=== PATIENT | female | born 1945 | race Caucasian/White ===

== ENCOUNTER → 2018-03-21 12:48 | Outpatient (CLI) | payer OTHER, SELFPAY ==
--- NOTE | 2018-03-21 | DI.MG.S_ITS ---
BILATERAL DIGITAL SCREENING MAMMOGRAM 3D/2D WITH CAD: 03/21/2018 CLINICAL: Routine screening. Family history of breast cancer. Comparison is made to exams dated: 03/15/2017 mammogram, 03/13/2016 mammogram, 03/12/2015 mammogram - [facility], 02/20/2014 mammogram, 02/20/2013 mammogram, and 08/05/2012 mammogram - [facility]. There are scattered fibroglandular elements in both breasts. Current study was also evaluated with a Computer Aided Detection (CAD) system. No significant masses, calcifications, or other findings are seen in either breast. There has been no significant interval change. IMPRESSION: NEGATIVE There is no mammographic evidence of malignancy. A 1 year screening mammogram is recommended. This exam was interpreted at Station ID: [id number]. NOTE: For mammograms, a report in lay terms will be sent to the patient. Approximately 15% of breast malignancies will not be visualized mammographically. In the management of a palpable breast mass, a negative mammogram must not discourage biopsy of a clinically suspicious lesion. Electronically Signed By: Chaparro chapman/charisma:03/21/2018 20:15:20 copy to: CT [facility]ERR[facility] letter sent: Normal Exam ACR BI-RADS Category 1: Negative 3341F
== END ==
PROVIDERS: Family Provider Specialist; PCP Nurse Practitioner Family; Visit Provider Specialist
DX: Z12.31 Encounter for screening mammogram for malignant neoplasm of breast (principal); Z80.3 Family history of malignant neoplasm of breast; M81.0 Age-related osteoporosis without current pathological fracture; Z78.0 Asymptomatic menopausal state
CPT/HCPCS: 77063; 77067; 77080

== ENCOUNTER → 2019-03-29 09:05 | Outpatient (CLI) | payer OTHER, SELFPAY ==
--- NOTE | 2019-03-29 | DI.MG.S_ITS ---
BILATERAL DIGITAL SCREENING MAMMOGRAM 3D/2D WITH CAD: 03/29/2019 CLINICAL: Routine screening. Family history of breast cancer. Comparison is made to exams dated: 03/21/2018 mammogram, 03/15/2017 mammogram, and 03/13/2016 mammogram - [facility]. There are scattered fibroglandular elements in both breasts. Current study was also evaluated with a Computer Aided Detection (CAD) system. No significant masses, calcifications, or other findings are seen in either breast. There has been no significant interval change. IMPRESSION: NEGATIVE There is no mammographic evidence of malignancy. A 1 year screening mammogram is recommended. This exam was interpreted at Station ID: [id number]. NOTE: For mammograms, a report in lay terms will be sent to the patient. Approximately 15% of breast malignancies will not be visualized mammographically. In the management of a palpable breast mass, a negative mammogram must not discourage biopsy of a clinically suspicious lesion. Electronically Signed By: Denzel moreland/charisma:03/29/2019 11:29:11 copy to: CT HERRERA letter sent: Normal Exam ACR BI-RADS Category 1: Negative 3341F
== END ==
PROVIDERS: Family Provider Specialist; PCP Nurse Practitioner Family; Visit Provider Nurse Practitioner Family
DX: Z12.31 Encounter for screening mammogram for malignant neoplasm of breast (principal); Z80.3 Family history of malignant neoplasm of breast
CPT/HCPCS: 77063; 77067

== ENCOUNTER → 2020-04-25 13:37 | Outpatient (CLI) | payer OTHER, SELFPAY ==
--- NOTE | 2020-04-25 | DI.MG.S_ITS ---
BILATERAL DIGITAL SCREENING MAMMOGRAM 3D/2D WITH CAD: 04/25/2020 CLINICAL: Routine screening. Family history of breast cancer. Comparison is made to exams dated: 03/29/2019 mammogram, 03/21/2018 mammogram, and 03/15/2017 mammogram - [facility]. There are scattered fibroglandular elements in both breasts. Current study was also evaluated with a Computer Aided Detection (CAD) system. No significant masses, calcifications, or other findings are seen in either breast. There has been no significant interval change. IMPRESSION: NEGATIVE There is no mammographic evidence of malignancy. A 1 year screening mammogram is recommended. This exam was interpreted at Station ID: [id number]. NOTE: For mammograms, a report in lay terms will be sent to the patient. Approximately 15% of breast malignancies will not be visualized mammographically. In the management of a palpable breast mass, a negative mammogram must not discourage biopsy of a clinically suspicious lesion. Electronically Signed By: Chava martinez/charisma:04/25/2020 14:53:20 copy to: CT HERRERA letter sent: Normal Exam ACR BI-RADS Category 1: Negative 3341F
== END ==
PROVIDERS: Family Provider Specialist; PCP Student in an Organized Health Care Education/Training Program; Referring Provider Student in an Organized Health Care Education/Training Program; Visit Provider Student in an Organized Health Care Education/Training Program
DX: Z12.31 Encounter for screening mammogram for malignant neoplasm of breast (principal); Z80.3 Family history of malignant neoplasm of breast; M81.0 Age-related osteoporosis without current pathological fracture; Z78.0 Asymptomatic menopausal state
CPT/HCPCS: 77063; 77067; 77080

== ENCOUNTER → 2020-05-31 15:13 | Outpatient (CLI) | payer MEDICARE, SELFPAY ==
[2020-05-31] MEDS: COVID-19 VACC #1, MRNA(MOD) 100 MCG/0.5 ML VIAL IM (15:22)
== END ==
PROVIDERS: Family Provider Specialist; PCP Student in an Organized Health Care Education/Training Program; Visit Provider Internal Medicine
DX: Z23 Encounter for immunization (principal)
CPT/HCPCS: 0011A; 91301

== ENCOUNTER → 2020-06-27 13:29 | Outpatient (CLI) | payer MEDICARE, SELFPAY ==
[2020-06-27] MEDS: COVID-19 VACC #2, MRNA(MOD) 100 MCG/0.5 ML VIAL IM (13:33)
== END ==
PROVIDERS: Family Provider Specialist; PCP Student in an Organized Health Care Education/Training Program; Visit Provider Internal Medicine
DX: Z23 Encounter for immunization (principal)
CPT/HCPCS: 0012A; 91301

== ENCOUNTER → 2021-04-29 15:29 | Outpatient (CLI) | payer OTHER, SELFPAY ==
--- NOTE | 2021-04-29 15:32 | DI.MG.S_ITS ---
BILATERAL DIGITAL SCREENING MAMMOGRAM 3D/2D WITH CAD: 04/29/2021 CLINICAL: Routine screening. Family history of breast cancer. Comparison is made to exams dated: 04/25/2020 mammogram, 03/29/2019 mammogram, and 03/21/2018 mammogram - [facility]. There are scattered fibroglandular elements in both breasts. Current study was also evaluated with a Computer Aided Detection (CAD) system. There is a stable benign focal asymmetry in the left breast. No significant masses, calcifications, or other findings are seen in either breast. There has been no significant interval change. IMPRESSION: BENIGN There is no mammographic evidence of malignancy. A 1 year screening mammogram is recommended. This exam was interpreted at Station ID: [id number]. NOTE: For mammograms, a report in lay terms will be sent to the patient. Approximately 15% of breast malignancies will not be visualized mammographically. In the management of a palpable breast mass, a negative mammogram must not discourage biopsy of a clinically suspicious lesion. Electronically Signed By: Gurpreet Banks acr/charisma:04/29/2021 17:15:05 copy to: CT HERRERA letter sent: Normal Exam ACR BI-RADS Category 2: Benign Finding(s) 3342F
== END ==
PROVIDERS: Family Provider Specialist; PCP Student in an Organized Health Care Education/Training Program; Referring Provider Student in an Organized Health Care Education/Training Program; Visit Provider Student in an Organized Health Care Education/Training Program
DX: Z12.31 Encounter for screening mammogram for malignant neoplasm of breast (principal); Z80.3 Family history of malignant neoplasm of breast
CPT/HCPCS: 77063; 77067

== ENCOUNTER → 2022-03-17 09:46 | Outpatient (CLI) | payer OTHER, SELFPAY ==
[2022-03-17 10:41] LABS: COVID19 -Nasal RAPID Negative (Negative)
== END ==
PROVIDERS: Radiology Diagnostic Radiology; Family Provider Specialist; PCP Student in an Organized Health Care Education/Training Program; Referring Provider Internal Medicine; Visit Provider Internal Medicine
DX: Z20.822 Contact with and (suspected) exposure to COVID-19 (principal)
CPT/HCPCS: 87635; C9803

== ENCOUNTER → 2022-03-18 07:56 | Outpatient (CLI) | payer OTHER, SELFPAY ==
--- NOTE | 2022-03-18 | DI.ECHO.S_ITS ---
[facility] +---------+ : : [address] : [place] : : : : [id number] : : : : Phone: [phone]+ Echocardiogram Report + + :Name: MICHELE LARKIN Study Date: 03/18/2022 Height: 61 in : :[facility] ReadingLocation: Weight: 134 lb : : Gender: Female BSA: 1.6 m2 : :: 1945 Age: 76 yrs BP: 142/81 mmHg: :Reason For Study: VENTRICULAR PREMATURE DEPLOARIZATION : :Ordering Physician: SABRA, : :ANUPAMA Performed By: Kandi Lopes : :Referring: ANUPAMA MONTAÑO : + + Interpretation Summary The ejection fraction is estimated to be 60-65%. Diastolic parameters suggest probable normal left ventricular diastolic function and normal filling pressures. The right ventricle is normal in size and function. The right ventricular systolic pressure is estimated to be at least 30 mmHg based on an estimated right atrial pressure of 3 mm Hg. No significant valvular disease. Procedure: A two-dimensional transthoracic echocardiogram with color flow and Doppler was performed. The study quality was technically adequate. There is no prior echocardiogram noted for this patient. The patient was in sinus rhythm with heart rates between 69-85 bpm during the exam. Left Ventricle: The left ventricle is normal in size and wall thickness. The ejection fraction is estimated to be 60-65%. There are no obvious focal wall motion abnormalities noted but poor endocardial definition reduces the sensitivity for the detection of such. Diastolic parameters suggest probable normal left ventricular diastolic function and normal filling pressures. Right Ventricle: The right ventricle is normal in size and function. Atria: The left atrial size is normal. Right atrial size is normal. There is no Doppler evidence for an interatrial shunt. Mitral Valve: The mitral valve is normal in structure and function. There is trace mitral regurgitation. Aortic Valve: The aortic valve is trileaflet. The aortic valve opens well. There is no aortic valve stenosis. There is trace aortic regurgitation. Tricuspid Valve: The tricuspid valve leaflets are thin and pliable. There is mild tricuspid regurgitation. The right ventricular systolic pressure is estimated to be at least 30 mmHg based on an estimated right atrial pressure of 3 mm Hg. Pulmonic Valve: The pulmonic valve leaflets are thin and pliable; valve motion is normal. There is mild pulmonic regurgitation. Great Vessels: The aortic root is normal size. The dimensions of the ascending aorta are normal. The IVC is of normal diameter and collapses greater than 50% with a sniff. This suggests a low right atrial pressure of 3 mm Hg. Pericardium/ Pleura There is no pericardial effusion. There is no pleural effusion. MMode/2D Measurements & Calculations LVIDd: 4.1 cm LVOT diam: 2.2 cm LVIDs: 2.6 cm Ao root diam: 3.2 cm FS: 37.5 % asc Aorta Diam: 3.0 cm IVSd: 0.83 cm Ao Arch Diam (Prox Trans): 2.5 cm LVPWd: 0.70 cm LV lambert. diameter/BSA (cm/m^2): 2.6 LV sys. diameter/BSA (cm/m^2): 1.6 LA A2 area: 15.9 cm2 RA long axis: 4.1 cm LA A4 area: 11.3 cm2 RA area: 11.4 cm2 LA length (vol): 3.7 cm RA vol: 26.8 ml LA vol: 41.0 ml RA : 16.8 ml/m2 LA vol index: 25.7 ml/m2 IVC diam: 1.0 cm RVD1 (basal): 3.2 cm TAPSE: 2.0 cm Doppler Measurements & Calculations Ao V2 max: 122.5 cm/sec LVOT Max Ulysses: 96.7 cm/sec Ao V2 mean: 88.7 cm/sec LV V1 max P.7 mmHg Ao max P.0 mmHg LV V1 VTI: 19.7 cm Ao mean P.5 mmHg TYSON(I,D): 2.6 cm2 Ao V2 VTI: 28.4 cm TYSON(V,D): 3.0 cm2 sev ratio: 0.69 TYSON indexed to BSA (cm^2/m^2): 1.6 MV E max ulysses: 82.9 cm/sec TR max ulysses: 259.2 cm/sec MV A max ulysses: 94.6 cm/sec TR max P.9 mmHg MV E/A: 0.88 PA V2 max: 79.5 cm/sec Med Peak E' Ulysses: 7.6 cm/sec PA V2 mean: 53.7 cm/sec E/E' med: 10.9 PA mean P.3 mmHg Lat Peak E' Ulysses: 6.2 cm/sec PA pr(Accel): 31.0 mmHg E/E' lat: 13.4 E/e' average: 12.1 MV dec time: 0.19 sec SV(LVOT): 74.4 ml Reading Physician:JAMES
--- NOTE | 2022-03-18 20:41 | DI.NM.S_ITS ---
DATE OF SERVICE: PROCEDURE: Exercise stress test. INDICATION: PVCs. CARDIAC STRESS: The patient underwent exercise stress test under the supervision of an attending staff. She walked on Christiano protocol for 5 minutes and 48 seconds, achieved maximum heart rate 152, which was 105 percent of target heart rate. Resting blood pressure 132/66 and peak blood pressure 158/80 mmHg. LOCO -10 percent. She achieved 7 METs of workload. No chest discomfort. Had some shortness of breath. Baseline rhythm was sinus with PVCs. During early part of exercise, there were more frequent isolated PVCs without any ventricular tachycardia. However, at peak exercise and early recovery, when maximum heart rate was 152, PVCs got suppressed. No significant recurrence in recovery. No complex ventricular arrhythmias, like ventricular tachycardia seen. CONCLUSION: Exercise stress test is negative for inducible ischemia. Normal hemodynamic response. Fair exercise tolerance. Functional aerobic impairment - 10 percent. Baseline rhythm sinus with isolated premature ventricular contractions, which got more frequent during early part of exercise, but got suppressed during peak exercise and early recovery. No complex ventricular arrhythmias, like ventricular tachycardia seen. No chest discomfort. Overall, low-risk exercise stress test. Niki Glaser - PATRICIA/porsche/lc doc#: [id number]/job#: [id number] dd: 03/18/2022 17:15:00 dt: 03/18/2022 20:26:00 DICTATING /COPIES TO: Nabil Castillo MD COPIES MNE: STAR;
== END ==
PROVIDERS: Family Provider Specialist; PCP Internal Medicine; Referring Provider Internal Medicine; Visit Provider Internal Medicine
DX: I07.1 Rheumatic tricuspid insufficiency (principal); I49.3 Ventricular premature depolarization
CPT/HCPCS: 93017; 93306

== ENCOUNTER → 2022-04-30 12:30 | Outpatient (CLI) | payer MEDICARE, SELFPAY ==
--- NOTE | 2022-04-30 | DI.MG.S_ITS ---
BILATERAL DIGITAL SCREENING MAMMOGRAM 3D/2D WITH CAD: 04/30/2022 CLINICAL: Routine screening. Family history of breast cancer. Comparison is made to exams dated: 04/29/2021 mammogram, 04/25/2020 mammogram, and 03/29/2019 mammogram - [facility]. There are scattered areas of fibroglandular density in both breasts (category b / 25%-50% glandular tissue). Current study was also evaluated with a Computer Aided Detection (CAD) system. There is a possible developing asymmetry in the right breast at 5 o'clock in the retroareolar region. No other significant masses, calcifications, or other findings are seen in either breast. IMPRESSION: INCOMPLETE: NEEDS ADDITIONAL IMAGING EVALUATION The possible developing asymmetry in the right breast is indeterminate. Additional views with possible ultrasound are recommended. Based on the Tyrer Cuzick model (a risk assessment model) the patient's lifetime risk is 6.4% and her 10 year risk is 6.4%. According to the ACR, ACS, and NCCN guidelines, an annual breast MRI exam along with mammogram is recommended if the patient's lifetime risk is 20% or greater. This exam was interpreted at Station ID: [id number]. NOTE: For mammograms, a report in lay terms will be sent to the patient. Approximately 15% of breast malignancies will not be visualized mammographically. In the management of a palpable breast mass, a negative mammogram must not discourage biopsy of a clinically suspicious lesion. Electronically Signed By: Tyson Morgan M.D., jr/charisma:04/30/2022 13:01:24 copy to: CT HERR[facility] letter sent: Additional Imaging Needed ACR BI-RADS Category 0: Incomplete 3340F
== END ==
PROVIDERS: Family Provider Specialist; PCP Internal Medicine; Referring Provider Internal Medicine; Visit Provider Internal Medicine
DX: Z12.31 Encounter for screening mammogram for malignant neoplasm of breast (principal); M81.0 Age-related osteoporosis without current pathological fracture; Z80.3 Family history of malignant neoplasm of breast; Z13.820 Encounter for screening for osteoporosis; Z79.83 Long term (current) use of bisphosphonates; Z92.23 Personal history of estrogen therapy
CPT/HCPCS: 77063; 77067; 77080

== ENCOUNTER → 2023-05-12 13:20 | Outpatient (CLI) | payer MEDICARE, SELFPAY ==
--- NOTE | 2023-05-12 13:22 | DI.MG.S_ITS ---
BILATERAL DIGITAL SCREENING MAMMOGRAM 3D/2D WITH CAD: 05/12/2023 CLINICAL: Routine screening. Family history of breast cancer. Comparison is made to exams dated: 04/30/2022 mammogram, 04/29/2021 mammogram, and 04/25/2020 mammogram - [facility]. There are scattered areas of fibroglandular density in both breasts (category b / 25%-50% glandular tissue). Current study was also evaluated with a Computer Aided Detection (CAD) system. No significant masses, calcifications, or other findings are seen in either breast. There has been no significant interval change. IMPRESSION: NEGATIVE There is no mammographic evidence of malignancy. A 1 year screening mammogram is recommended. Based on the Tyrer Cuzick model (a risk assessment model) the patient's lifetime risk is 5.9% and her 10 year risk is 0.0%. According to the ACR, ACS, and NCCN guidelines, an annual breast MRI exam along with mammogram is recommended if the patient's lifetime risk is 20% or greater. This exam was interpreted at Station ID: [id number]. NOTE: For mammograms, a report in lay terms will be sent to the patient. Approximately 15% of breast malignancies will not be visualized mammographically. In the management of a palpable breast mass, a negative mammogram must not discourage biopsy of a clinically suspicious lesion. Electronically Signed By: Malena chawla/charisma:05/12/2023 16:33:33 copy to: CT HERRERA letter sent: Normal Exam ACR BI-RADS Category 1: Negative 3341F
== END ==
LOC: MAMMO 13:22
PROVIDERS: Family Provider Specialist; PCP Internal Medicine; Referring Provider Internal Medicine; Visit Provider Internal Medicine
DX: Z12.31 Encounter for screening mammogram for malignant neoplasm of breast (principal); Z80.3 Family history of malignant neoplasm of breast; R92.323 Mammographic fibroglandular density, bilateral breasts
CPT/HCPCS: 77063; 77067

== ENCOUNTER → 2024-06-05 09:43 | Outpatient (CLI) | payer MEDICARE, SELFPAY ==
--- NOTE | 2024-06-05 09:47 | DI.MG.S_ITS ---
BILATERAL DIGITAL SCREENING MAMMOGRAM 3D/2D WITH CAD: 06/05/2024 CLINICAL: Routine screening. Family history of breast cancer. Comparison is made to exams dated: 05/12/2023 mammogram, 04/30/2022 mammogram, and 04/29/2021 mammogram - . There are scattered areas of fibroglandular density (category b / 25%-50% glandular tissue). Current study was also evaluated with a Computer Aided Detection (CAD) system. No significant masses, calcifications, or other findings are seen in either breast. There has been no significant interval change. IMPRESSION: NEGATIVE There is no mammographic evidence of malignancy. A 1 year screening mammogram is recommended. Based on the Tyrer Cuzick model (a risk assessment model) the patient's lifetime risk is 5.3% and her 10 year risk is 0.0%. According to the ACR, ACS, and NCCN guidelines, an annual breast MRI exam along with mammogram is recommended if the patient's lifetime risk is 20% or greater. This exam was interpreted at Station ID: [id number]. NOTE: For mammograms, a report in lay terms will be sent to the patient. Approximately 15% of breast malignancies will not be visualized mammographically. In the management of a palpable breast mass, a negative mammogram must not discourage biopsy of a clinically suspicious lesion. Electronically Signed By: Denzel moreland/charisma:06/05/2024 16:35:16 copy to: CT HERRERA letter sent: Normal Exam ACR BI-RADS Category 1: Negative
--- NOTE | 2024-06-05 09:48 | DI.RAD.S_ITS ---
PROCEDURE: XR DEXA AXIAL SKELETON INDICATIONS: ROUTINE SCREENING COMPARISON: [facility], CR, XR DEXA AXIAL SKELETON, 04/30/2022, 13:14. [facility], CR, XR DEXA AXIAL SKELETON, 04/25/2020, 14:07. FINDINGS: Lumbar Spine: Bone mineral density 1.045 g/cm2, T score 0.0. Since the most recent prior study, there has been a statistically significant increase in bone mineral density by 3.2 %. Left Femoral Neck: Bone mineral density 0.556 g/cm2, T score -2.6. Left Hip: Bone mineral density 0.778 g/cm2, T score -1.3. Prior DEXA was performed using dissimilar scan type or analysis method. Fracture Risk Calculation (when applicable): FRAX score not reported due to T-score less than -2.5. (T score greater or equal to -1.0 to: NORMAL) (T score from -1.1 to -2.4: OSTEOPENIA) (T score less than or equal to -2.5: OSTEOPOROSIS) IMPRESSION: By WHO criteria, patient has osteoporosis. Follow-up guidelines as follows: Osteoporosis: Consider a repeat DEXA and Vertebral Fracture Assessment (VFA) exam in 2 years or sooner if medically necessary, to reassess this patient's status. Osteopenia: Consider a repeat DEXA in 2-3 years to reassess this patient's status, or if there is a new clinical indication. Normal: Consider a repeat DEXA in 5 years or sooner, or if there is a new clinical indication. All treatment decisions require clinical judgment and consideration of individual patient factors, including patient preferences, comorbidities, previous drug use, risk factors not captured in the FRAX model (e.g., frailty, falls, vitamin D deficiency, increased bone turnover, interval significant decline in bone density ) and possible under- or over-estimation of fracture risk by FRAX. In addition, the NOF Guide recommends that FDA-approved medical therapies be considered in postmenopausal women and men age >= 50 years with a: * Hip or vertebral (clinical or morphometric) fracture * T-score of <=-2.5 at the spine or hip * Ten-year fracture probability by FRAX of >= 3% for hip fracture or >=20% for major osteoporotic fracture. Approved by: Chava Azevedo M.D. on 06/05/2024 at 20:28
== END ==
PROVIDERS: Family Provider Specialist; PCP Internal Medicine; Referring Provider Internal Medicine; Visit Provider Internal Medicine
DX: Z12.31 Encounter for screening mammogram for malignant neoplasm of breast (principal); Z80.3 Family history of malignant neoplasm of breast; M81.0 Age-related osteoporosis without current pathological fracture
CPT/HCPCS: 77063; 77067; 77080

== ENCOUNTER 2025-04-18 15:06 | Inpatient (IN) | payer MEDICARE, SELFPAY ==
[2025-04-18] VITALS (16 sets, daily range): BP systolic 137–164; BP diastolic 62–80; PULSE 74–84; RESP 16–17; TEMP 36.6; O2SAT 95–100; BMI 25.3
--- OUTSIDE RECORDS SUMMARY | 2025-04-18 15:12 | XMS_ITS | Encounter Summary ---
Author Organization [facility] Address [address] [place] [address] Care Team Providers Care Evaporator Supervisor Name Role Phone PeytonSarah KYLIE Primary Care Provider Encounter Details Date Type Department Care Team (Late st Contact Info) Description 07/26/2024 Abstract Located Within [facility] Health Information Management [address] [place] [phone] [facility] [employer], Provider, Social History Tobacco Use Types Packs/Day Years Used Date Smoking Tobacco: Never Smokeless Tobacco: Never Comments Unknown Sex and Gender Information Value Date Recorded Sex Assigned at Not on file Legal Sex Female 2:57 PM PST Gender Identity Not on file Sexual Orientation Not on file documented as of this encounter Plan of Treatment Not on file documented as of this encounter Procedures Procedure Name Priority Date/Time Associated Diagnosis Comments COLONOSCOPY Routine 06/15/2019 COLONOSCOPY Routine 03/25/2016 COLONOSCOPY Routine 09/04/2015 documented in this encounter Results * External/Historical Colonoscopy (06/15/2019) External/Histor ical Colonoscopy [facility] us Ordering Provider HEALTH MAINTENANCE Final Resul t * External/Historical Colonoscopy (03/25/2016) External/Histor ical Colonoscopy [facility] us Ordering Provider HEALTH MAINTENANCE Final Resul t * External/Historical Colonoscopy (09/04/2015) External/Histor ical Colonoscopy [facility] us Ordering Provider [facility] Final Resul t documented in this encounter Visit Diagnoses Not on filedocumented in this encounter Care Teams Evaporator Supervisor Relationship Specialty Start Date End Date Sarah Tdod ARNP [address] [place] [id number] PCP - General Nurse Practitioner 08/23/24 documented as of this encounter
--- NOTE | 2025-04-18 15:27 | DI.RAD.S_ITS ---
PROCEDURE: XR HIP W PEL IF DONE LT 2V INDICATIONS: fall/pain TECHNIQUE: AP pelvis with lateral view of the left hip. COMPARISON: None. FINDINGS: Bones: Questionable impacted fracture of the left femoral neck. Pelvic ring appears intact. No suspicious bony lesions. Moderate degenerative changes in the hips bilaterally with joint space narrowing and marginal osteophyte formation. Degenerative changes are seen in the included spine. Soft tissues: The visualized bowel gas pattern is normal. No suspicious soft tissue calcifications. IMPRESSION: Questionable minimally displaced and impacted fracture of the left femoral neck. Approved by: Chava Azevedo M.D. on 04/18/2025 at 16:08
--- NOTE | 2025-04-18 16:54 | ED.FALL ---
HPI - Fall General Chief Complaint: Fall Stated Complaint: Fell Time Seen by Provider: 04/18/25 15:29 Source: patient, family, RN notes reviewed and old records reviewed Mode of arrival: Wheelchair Limitations: no limitations History of Present Illness HPI Narrative: 79-year-old female history of hypertension dyslipidemia, osteoporosis does not take any anticoagulants. Patient states she was walking tripped on a curb and fell onto her left hip. She has had pain and difficulty with any weight-bearing since. Any sort of movement of the left hip is painful. She denies any other injuries. Denies hitting her head no neck or back pain. No chest pain or shortness of breath. No loss of consciousness. No nausea or vomiting. No GI or urinary symptoms. She denies any numbness, tingling or weakness of her extremities. She states she can move her foot normally. Patient states if she does not move her pain is okay. She states she takes metoprolol succinate, atorvastatin, role of vaccine and amlodipine daily. Has had prior foot surgery. Reports allergies to penicillin, sulfa and hydrochlorothiazide. No tobacco, alcohol or recreational drugs. Nuvia Culver and Dr. Plata is her primary care. Related Data Home Medications ?Medication ?Instructions ?Recorded ?Confirmed amlodipine 2.5 mg tablet (Norvasc) 5 mg PO QDAY #0 tabs 04/25/18 04/25/18 metoprolol succinate 50 mg capsule 50 mg PO DAILY 04/25/18 04/25/18 sprinkle, ext. release 24 hr Allergies Allergy/AdvReac Type Severity Reaction Status Date / Time Penicillins (PENICILLINS) Allergy Unknown Verified 04/18/25 15:12 Sulfa (Sulfonamide Allergy Unknown Verified 04/18/25 15:12 Antibiotics) (SULFA (SULFONAMIDE ANTIBIOTICS)) hydrochlorothiazide Allergy Verified 04/18/25 15:12 Review of Systems Review of Systems ROS Unobtainable: All systems reviewed & are unremarkable except as noted in HPI and below Patient History Medical History Osteopenia Surgical History History of parotid gland removal Status post tubal ligation Smoking Status: Never smoker Exam Narrative Exam Narrative: GEN: Patient appears in mild distress. HEAD: No evidence of trauma, no raccoon/Nix sign. NECK: Nontender, painless range of motion, trachea midline Negative Nexus criteria, no midline line tenderness, distracting injury, altered mental status, neuro deficit, recent EtOH. EYES: PERRLA, EOMI ENT: External inspection normal, trachea is midline, TM's are normal no hemotypanum, Nares are clear, no septal hematoma, no dental or oral injury, airway is normal and with normal occlusion, No bony tenderness RESP: Chest is nontender and has symmetric movement, no ecchymosis, breath sounds are normal no crackles, wheezes or rales CVS: Heart sounds are normal, no murmur noted, No JVD. ABG/GI: Nontender, soft, normal bowel sounds, no distention, no organomegaly, pelvic rock is negative NEURO: Oriented AOx3, neuro is grossly intact, sensation and motor is normal all 4 extremities moving, cranial nerves II through XII are intact, GCS is15 PSYCH: Normal mood and affect SKIN: Intact, warm and dry, no crepitus and without decubitus BACK: No CVA tenderness, no vertebral tenderness, no step-off's, no crepitus EXT: Patient has tenderness over the left hip, no obvious ecchymosis or skin changes, nontender over the left distal femur, knee, nontender of the tib-fib, ankle or foot or toes. Patient has some greenish ecchymosis over the dorsum of her left foot but is nontender. Normal plantar dorsiflexion. 2+ dorsalis pedis on the left. No other bony tenderness of her upper extremities or right lower extremity with full range of motion and normal muscle strength. Initial Vital Signs Initial Vital Signs: Vital Signs Temperature 97.8 F 04/18/25 15:11 Pulse Rate 80 04/18/25 15:11 Respiratory Rate 16 04/18/25 15:11 Blood Pressure 156/70 H 04/18/25 15:11 Pulse Oximetry 98 04/18/25 15:11 Oxygen Delivery Method Room Air 04/18/25 15:11 Course Orders Ordered: ED Orders 04/18/25 15:27 XR hip w pel LT 2V Stat 04/18/25 16:38 CBC Auto Diff [Complete Blood Count AUTO DIFF] Stat CMP [Comprehensive Metabolic Panel] Stat Lipase Stat Type and Screen Stat Discontinued Medications Morphine Sulfate (Morphine 2 Mg/Ml Inj) 2 mg IV NOW ONE Stop: 04/18/25 17:05 Last Admin: 04/18/25 17:10 Dose: 2 mg Vital Signs Vital signs: Vital Signs - 8 hr 04/18/25 15:11 Temperature 97.8 F Pulse Rate 80 Respiratory Rate 16 Blood Pressure 156/70 H Pulse Oximetry 98 Oxygen Delivery Method Room Air MDM - Fall Lab Data 04/18/25 16:50 04/18/25 16:50 Labs: Lab Results 04/18/25 Range/Units 16:50 WBC 10.3 (4.5-11.0) X10^3/uL RBC 4.81 (4.0-5.2) X10^6/uL Hgb 13.7 (12.0-16.0) g/dL Hct 41.2 (36-46) % MCV 85.6 (80-100) fL MCH 28.5 (26-34) PG MCHC 33.3 (30-36) % RDW 13.8 (11.6-14.8) % Plt Count 272 (150-400) X10^3/uL Neut % (Auto) 61.6 (50-75) % Lymph % (Auto) 32.6 (25-40) % [place] % (Auto) 3.2 (3-14) % Eos % (Auto) 0.4 L (2-4) % Baso % (Auto) 2.2 H (0-2) % Neut # (Auto) 6400 (2565-6517) /uL Lymph # (Auto) 3400 (9730-6227) /uL [place] # (Auto) 300 (0-900) /uL Eos # (Auto) 0 (0-450) /uL Baso # (Auto) 200 H (0-100) /uL Sodium 134 L (137-145) mmol/L Potassium 3.9 (3.4-5.1) mmol/L Chloride 102 (98-107) mmol/L Carbon Dioxide 23 (22-32) mmol/L BUN 24 H (7-17) mg/dL Creatinine 0.99 (0.52-1.04) mg/dL Estimated GFR 58 L (>60) mL/min BUN/Creatinine Ratio 24.2 H (6-22) Glucose 106 H (70-99) mg/dL Calcium 9.4 (8.4-10.2) mg/dL Total Bilirubin 0.9 (0.2-1.3) mg/dL AST 38 H (14-36) IU/L ALT 30 (<35) IU/L Alkaline Phosphatase 59 (38-126) U/L Total Protein 7.8 (6.3-8.2) g/dL Albumin 4.9 (3.5-5.0) g/dL Globulin 2.9 (1.7-4.1) g/dL Albumin/Globulin Ratio 1.7 (1.0-2.8) Lipase 133 (23-300) U/L Blood Type AB Positive Antibody Screen Negative MDM Narrative Medical decision making narrative: 79-year-old female who has a mechanical ground level fall landing on her left side has persistent left hip pain with any sort of movement X-ray left hip shows questionable minimally displaced and impacted fracture left femoral neck. Labs show normal white count, hemoglobin and platelets, sodium is 134 BUN is 24 electrolytes are otherwise appropriate creatinine 0.99 glucose is 106, AST is 38 otherwise normal LFTs. Patient has a dose of IV pain medication here in the department. Spoke with Dr. Ferrari @ [phone]. Will be in the department. Dr. Ferrari in the department plan for OR tomorrow. Spoke with Dr. Chandler @ [phone] accepts for Sherlyn/Peyton patient for left hip fracture with plan for OR tomorrow. Discharge Plan Departure Patient Disposition: Admitted As Inpatient Clinical Impression: Closed fracture of left hip
[2025-04-18 17:02] LABS: Add Manual Diff / Slide Review NO; Hematocrit 41.2 % (36-46); Hemoglobin 13.7 g/dL (12.0-16.0); Lymphocytes Absolute Auto 3400 /uL (1100-4500); Mean Corpuscular HGB Conc 33.3 % (30-36); Mean Corpuscular Hemoglobin 28.5 PG (26-34); Mean Corpuscular Volume 85.6 fL (80-100); Platelet Count 272 X10^3/uL (150-400)
[2025-04-18] MEDS: MORPHINE 2 MG/ML INJ IV (17:10)
[2025-04-18 17:12] LABS: Alanine Aminotransferase 30 IU/L (<35); Albumin 4.9 g/dL (3.5-5.0); Albumin Globulin Ratio 1.7 (1.0-2.8); Alkaline Phosphatase 59 U/L (38-126); Blood Urea Nitrogen 24 mg/dL (7-17); Carbon Dioxide 23 mmol/L (22-32); Chloride 102 mmol/L (98-107); Estimated Glomerular Filt Rate 58 mL/min (>60); Globulin 2.9 g/dL (1.7-4.1); HEMOLYSIS < 15 (0-50); Total Protein 7.8 g/dL (6.3-8.2)
[2025-04-18 17:20] LABS: Calcium 9.4 mg/dL (8.4-10.2); Glucose 106 mg/dL (70-99); Lipase 133 U/L (23-300); Potassium 3.9 mmol/L (3.4-5.1); Sodium 134 mmol/L (137-145)
--- NOTE | 2025-04-18 17:20 | P.CONS_ITS ---
History of Present Illness Consult details Date Patient Seen: 04/18/25 Time Patient Seen: 17:21 Chief complaint: Fell Reason for consult: Left hip fracture Requesting provider: Kayce Dominguez Narrative: Niki is a 79-year-old female who sustained an injury to her left hip today when she tripped and fell on her way to dinner. She reports pain isolated to the left hip. She reports no significant pain of the hip prior to this. Meds Home Medications and Allergies Home Medications ?Medication ?Instructions ?Recorded ?Confirmed ?Type amlodipine 2.5 mg tablet (Norvasc) 5 mg PO QDAY #0 tab s 04/25/18 04/25/18 History metoprolol succinate 50 mg capsule 50 mg PO DAILY 03/2804/25/18 History sprinkle, ext. release 24 hr Allergies Allergy/AdvReac Type Severity Reaction Status Date / Time Penicillins (PENICILLINS) Allergy Unknown Verified 04/18/25 15:12 Sulfa (Sulfonamide Allergy Unknown Verified 04/18/25 15:12 Antibiotics) (SULFA (SULFONAMIDE ANTIBIOTICS)) hydrochlorothiazide Allergy Verified 04/18/25 15:12 Review of Systems Review of Systems ROS: Yes All systems reviewed with the patient and are negative except as otherwise documented Exam Vital Signs (past 8 hours): - 04/18/25 15:11 Temperature 97.8 F Pulse Rate 80 Respiratory Rate 16 Blood Pressure 156/70 H Pulse Oximetry 98 Oxygen Delivery Method Room Air Oxygen Delivery Method Room Air Narrative Exam Narrative: Left lower extremity is without gross deformity. There is tenderness over the hip region. Log roll is positive. Distal motor and sensory exam is intact. Objective Imaging Left hip films: My impression: AP pelvis with lateral view of the left hip performed April 18, 2025 were personally assessed. There is evidence of cortical disruption at the subcapital region on the AP view as well as on the lateral view in which there is angular displacement involving the anterior cortex. Findings are consistent with a moderately displaced subcapital femoral neck fracture. Labs 04/18/25 16:50 04/18/25 16:50 Labs: Laboratory Results - last 24 hr 04/18/25 16:50 WBC 10.3 RBC 4.81 Hgb 13.7 Hct 41.2 MCV 85.6 MCH 28.5 MCHC 33.3 RDW 13.8 Plt Count 272 Neut % (Auto) 61.6 Lymph % (Auto) 32.6 [place] % (Auto) 3.2 Eos % (Auto) 0.4 L Baso % (Auto) 2.2 H Neut # (Auto) 6400 Lymph # (Auto) 3400 [place] # (Auto) 300 Eos # (Auto) 0 Baso # (Auto) 200 H PFSH Medical History Osteopenia Surgical History History of parotid gland removal Status post tubal ligation Tobacco & Substance Use Smoking Status: Never smoker Assessment & Plan Assessment & Plan narrative: Left subcapital femoral neck fracture. Diagnosis and treatment options were discussed with the patient. She has sustained a displaced fracture of the left femoral neck. We discussed the risks of avascular necrosis with attempts at reduction and internal fixation. With her age and displacement, I think the best option would be to proceed with hemiarthroplasty over open reduction internal fixation. Benefits of surgery include early mobilization, pain improvement, and prevention of complications related to immobilization. Risks of surgery were also discussed today. These included, but were not limited to: Bleeding, infection, drug reactions, neurovascular injury, incomplete pain relief, stiffness, periprosthetic fracture, periprosthetic infection, DVT, PE, and . Patient voiced understanding acceptance of the risks. Plan: Admission to hospitalist service for preoperative clearance. NPO after midnight. Plan for hemiarthroplasty tomorrow. Type and screen 2 units. Time-Based Coding :: [TOTAL MINUTES] spent with patient and on the chart (including review of chart, obtaining history, exam, reviewing outside data, placing orders, documenting exam and treatment plan, and counseling patient) on [DATE]. PROFEE Charge Codes Inpatient or Observation consultation: [id number]
--- NOTE | 2025-04-18 19:34 | P.CONS_ITS ---
History of Present Illness Consult details Date Patient Seen: 04/18/25 Time Patient Seen: 19:34 Chief complaint: Fell Narrative: Chief complaint: Ground level fall with left hip fracture and pain History of present illness: 04/18: 79-year-old female after tripping on a curb and fell onto her left hip admitted to the service of Dr. Vega Blair Home Medications and Allergies Home Medications ?Medication ?Instructions ?Recorded ?Confirmed ?Type amlodipine 2.5 mg tablet (Norvasc) 5 mg PO QDAY #0 tab s 04/25/18 04/25/18 History metoprolol succinate 50 mg capsule 50 mg PO DAILY 03/2804/25/18 History sprinkle, ext. release 24 hr Allergies Allergy/AdvReac Type Severity Reaction Status Date / Time Penicillins (PENICILLINS) Allergy Unknown Verified 04/18/25 15:12 Sulfa (Sulfonamide Allergy Unknown Verified 04/18/25 15:12 Antibiotics) (SULFA (SULFONAMIDE ANTIBIOTICS)) hydrochlorothiazide Allergy Verified 04/18/25 15:12 Exam Vital Signs (past 8 hours): - 04/18/25 15:11 Temperature 97.8 F Pulse Rate 80 Respiratory Rate 16 Blood Pressure 156/70 H Pulse Oximetry 98 Oxygen Delivery Method Room Air Oxygen Delivery Method Room Air Objective Labs 04/18/25 16:50 04/18/25 16:50 Labs: Laboratory Results - last 24 hr 04/18/25 16:50 WBC 10.3 RBC 4.81 Hgb 13.7 Hct 41.2 MCV 85.6 MCH 28.5 MCHC 33.3 RDW 13.8 Plt Count 272 Neut % (Auto) 61.6 Lymph % (Auto) 32.6 [place] % (Auto) 3.2 Eos % (Auto) 0.4 L Baso % (Auto) 2.2 H Neut # (Auto) 6400 Lymph # (Auto) 3400 [place] # (Auto) 300 Eos # (Auto) 0 Baso # (Auto) 200 H Sodium 134 L Potassium 3.9 Chloride 102 Carbon Dioxide 23 BUN 24 H Creatinine 0.99 Estimated GFR 58 L BUN/Creatinine Ratio 24.2 H Glucose 106 H Calcium 9.4 Total Bilirubin 0.9 AST 38 H ALT 30 Alkaline Phosphatase 59 Total Protein 7.8 Albumin 4.9 Globulin 2.9 Albumin/Globulin Ratio 1.7 Lipase 133 Blood Type AB Positive Antibody Screen Negative [facility] Medical History Osteopenia Surgical History History of parotid gland removal Status post tubal ligation Tobacco & Substance Use Smoking Status: Never smoker Assessment & Plan Time-Based Coding :: [TOTAL MINUTES] spent with patient and on the chart (including review of chart, obtaining history, exam, reviewing outside data, placing orders, documenting exam and treatment plan, and counseling patient) on [DATE].
[2025-04-18] MEDS: LACTATED RINGERS 1,000 ML 42 ML IV (22:34)
[2025-04-19] VITALS (13 sets, daily range): BP systolic 107–139; BP diastolic 56–71; PULSE 64–86; RESP 14–16; TEMP 35.7–36.8; O2SAT 94–100
--- NOTE | 2025-04-19 | DI.RAD.S_ITS ---
PROCEDURE: XR HIP W PEL IF DONE LT 2V INDICATIONS: POST OP TECHNIQUE: AP pelvis and lateral view of the hip acquired. COMPARISON: [facility], CR, XR HIP W PEL LT 2V, 04/18/2025, 15:35. FINDINGS: Bones: Patient is status post left hip arthroplasty, with hardware components in expected positions. The hip joint appears congruent. The visualized bony structures appear intact. Soft tissues: Overlying postoperative changes are noted. No suspicious soft tissue densities. IMPRESSION: Expected post-operative appearance of a hip arthroplasty. Dictated by: Alexis Dobson M.D. on 04/19/2025 at 17:44 Approved by: Alexis Dobson M.D. on 04/19/2025 at 17:44
[2025-04-19] MEDS: ACETAMINOPHEN 325 MG TABLET 650 MG PO (06:35)
--- NOTE | 2025-04-19 07:52 | PM.HP.IH.1 ---
History of Present Illness History of Present Illness Date Patient Seen: 04/19/25 Chief complaint: Fell Narrative: 79-year-old female patient of [facility] presented to the emergency department after a fall. Patient states he was tending to go to dinner with some family and friends. She was walking into the [employer]. She tripped on the curb and fell on her hip. She was with her in the friends were close by. She has medical related friends. They determined that going to dinner was not good as she was not able to stand up and bear weight on her hip. Her was able to pick her up they decided to transport her to the hospital in a private vehicle. When she fell she fell on her hip. She says she did not hit her head she did not lose consciousness. Before her hospitalization she says she is in good health. She has had no chest pain no shortness of breath. She is able to walk and lives independently. No problems with her memory. Patient a few years ago was diagnosed with PVCs but no problems now she relates this after getting COVID vaccine. Patient is on amlodipine atorvastatin and metoprolol. Laboratory tests were reviewed patient has normal hemoglobin and hematocrit shows no anemia. Patient has chronically low sodium since 2018. Her current sodium level was 134 she has normal kidney function. Patient previous DEXA scan shows osteoporosis. Patient had an echocardiogram in 2021 with a normal ejection fraction no significant valvular heart disease. Previous surgical history includes a tubal surgery and parotid gland surgery without any complications. [facility] Medical History Osteopenia Surgical History History of parotid gland removal Status post tubal ligation Social History household members: spouse Smoking Status: Never smoker Meds Home Medications and Allergies Home Medications ?Medication ?Instructions ?Recorded ?Confirmed ?Type amlodipine 2.5 mg tablet (Norvasc) 5 mg PO QDAY #0 tabs 04/25/18 04/19/25 History metoprolol succinate 50 mg capsule 50 mg PO DAILY 04/25/18 04/19/25 History sprinkle, ext. release 24 hr atorvastatin 10 mg tablet 5 mg PO BEDTIME 04/19/25 04/19/25 History Allergies Allergy/AdvReac Type Severity Reaction Status Date / Time Penicillins (PENICILLINS) Allergy Unknown Verified 04/18/25 15:12 Sulfa (Sulfonamide Allergy Unknown Verified 04/18/25 15:12 Antibiotics) (SULFA (SULFONAMIDE ANTIBIOTICS)) hydrochlorothiazide Allergy Verified 04/18/25 15:12 Exam Vital Signs (past 8 hours): - 04/19/25 06:00 Temperature 97.3 F L Pulse Rate 79 Respiratory Rate 16 Blood Pressure 127/63 Pulse Oximetry 96 Oxygen Delivery Method Room Air Narrative Exam Narrative: Gen.: Alert and oriented x3 no apparent distress. HEENT: NCAT PERRLA tympanic membranes are clear nares are patent oral mucosa is moist no tonsillar hypertrophy neck is supple without lymphadenopathy no thyroid enlargement. Cardio: S1-S2 regular rate and rhythm no murmurs appreciated. Respiratory: Lungs are clear to auscultation no wheezes or crackles normal respiratory effort. Abdomen: Soft nontender no rebound or guarding no liver spleen enlargement no appreciable hernias Extremities: Lower extremities warm dry perfused. Pain with movement of left hip. Neurologic: Grossly intact. Objective Labs 04/18/25 16:50 04/18/25 16:50 Labs: Laboratory Results - last 24 hr 04/18/25 16:50 WBC 10.3 RBC 4.81 Hgb 13.7 Hct 41.2 MCV 85.6 MCH 28.5 MCHC 33.3 RDW 13.8 Plt Count 272 Neut % (Auto) 61.6 Lymph % (Auto) 32.6 [place] % (Auto) 3.2 Eos % (Auto) 0.4 L Baso % (Auto) 2.2 H Neut # (Auto) 6400 Lymph # (Auto) 3400 [place] # (Auto) 300 Eos # (Auto) 0 Baso # (Auto) 200 H Sodium 134 L Potassium 3.9 Chloride 102 Carbon Dioxide 23 BUN 24 H Creatinine 0.99 Estimated GFR 58 L BUN/Creatinine Ratio 24.2 H Glucose 106 H Calcium 9.4 Total Bilirubin 0.9 AST 38 H ALT 30 Alkaline Phosphatase 59 Total Protein 7.8 Albumin 4.9 Globulin 2.9 Albumin/Globulin Ratio 1.7 Lipase 133 Blood Type AB Positive Antibody Screen Negative Assessment & Plan Assessment and plan (1) Closed fracture of left hip: Qualifiers: Encounter type: initial encounter Qualified Code(s): S72.002A - Fracture of unspecified part of neck of left femur, initial encounter for closed fracture Status: Acute Plan Left femoral neck fracture 79-year-old female with pathologic fracture of left hip with known history of osteoporosis. Patient has had surgical consultation and is anticipating surgical repair. Patient will need treatment for osteoporosis. We will leave this up to the primary care team as an outpatient. Preoperatively patient has previously tolerated anesthesia well. She has a history of PVCs hypertension and hyperlipidemia. Her blood pressure is well controlled. She has no current concerns around chest pain palpitations shortness of breath. That is able to walk greater than the 2 blocks without concern. I will go ahead and order an EKG this morning to review before surgery. She will be continued on her home medication including her metoprolol amlodipine and atorvastatin. At this point she is medically stable for her urgent surgical procedure. PVCs. Patient with a history of PVCs. Patient asymptomatic without problems. Patient previous echocardiogram reviewed which showed normal ejection fraction and no valvular heart disease. She is on metoprolol. We will go ahead and do an EKG this morning before surgery. We will continue her medication and monitor for irregular heart rhythms. Hyponatremia. Patient has chronic hyponatremia going back to 2018 her sodium level is mildly low. She is getting lactated Ringer's. May consider changing to normal saline been in all reality wants the surgeries open she can start on a general diet. We will continue to monitor closely sodium levels and treat if needed. Hypertension. Patient will be continued on her metoprolol and amlodipine blood pressure is well controlled. Hyperlipidemia patient will be continued on her statin. Osteoporosis. Patient with previous DEXA scan which showed osteoporosis. Will need treatment with this with either bisphosphonate or denosumab. DVT prophylaxis SCDs Disposition and plan discharge home hopefully tomorrow Time-Based Coding :: [TOTAL MINUTES] spent with patient and on the chart (including review of chart, obtaining history, exam, reviewing outside data, placing orders, documenting exam and treatment plan, and counseling patient) on [DATE]. Quality VTE Deep Vein Thrombosis/Pulmonary Embolism Present on Admission: No IH PROFEE Customs Entry Clerk Document charge(s): Yes Charge Codes Initial inpatient/observation care: [id number]
[2025-04-19] MEDS: METOPROLOL ER 50 MG TABLET PO (09:06)
--- NOTE | 2025-04-19 11:17 | EKG_ITS ---
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
--- NOTE | 2025-04-19 11:45 | CM.DANOTE ---
Initial DCP Assessment Visit Reviewed EMR and team rounds for pt's medical status and updates. Went to go meet with pt at bedside, however she was found to be sleeping at the time of this visit. Pt lives independently at baseline in her own home with her spouse here in [place]. She will meet with PT/OT after surgery (today), so pending recommendations for SNF vs. Home at d/c. Payor: [employer] Medicare Adv PCP: Shira Plata Pt is a 79 year-old F with a PMH of dislipidemia and osteoporosis. She presented to the ED following a GLF, landing on her L-hip. She reports being unable to bear weight due to the resulting pain w/movement. Hip x-ray of her L-hip did show a fracture. Surgery was consulted, and the plan was made to admit for surgery (today). DCP will continue to monitor for evolving and final d/c recommendations and needs. Discharge Planning/Care Management CM Discharge Assessment Start: 04/18/25 21:46 Freq: Status: Active Protocol: Document 04/19/25 11:00 DPL (Rec: 04/19/25 11:09 DPL [id number]) Discharge Planning Assessment Assigned Discharge DAVID Hernandez [employer]xture [employer] Insurance Other (enter in Comment) Insurance Comment [facility] Advance Directives? No History Provided By Medical Record Has Patient been No admitted in last 30 days? Prior Living House Arrangements Household Members spouse Type of Drives own vehicle transporation used prior to admit Independent with ADL Yes 's Is patient alert and Yes oriented? Caregiver for No Another Comment Pending surgery and PT/OT evals. Barriers to No Discharge Transportation Pending Arrangement Additional Comment Pending Whiteboard Updated Yes in Patient Room with name and ext. # of Manager Food Beverage Review Status In Process Please Provide Date 04/19/25 Initial DC Assessment Was Performed
[2025-04-19] MEDS: APREPITANT 40 MG CAPSULE PO (14:01)
[2025-04-19] MEDS: ACETAMINOPHEN IV 1,000 MG/100 ML VIAL 400 MG IV (15:40)
--- NOTE | 2025-04-19 15:51 | SUR.OPER ---
Lateral on a cervantes bag, head on pillow, gel axillary roll in place, bottom leg bent with gel pad under knee to foot, upper leg straight and supported with pillows. Upper arm supported by pillows and secured over bottom arm to padded arm board. Safety belt at hip, tape over blanket lower legs.
--- NOTE | 2025-04-19 18:05 | P.OP_ITS ---
Operative Date/Time/Diagnoses Date of procedure: 04/19/25 Time of procedure: 18:05 Pre-op diagnosis: Left hip femoral neck fracture Post-op diagnosis: same Procedure & Clinicians Procedure: Left hip hemiarthroplasty for femoral neck fracture (CPT - 57395) Partial excision of bone, left femur (CPT - 29074) Same procedure(s) as scheduled: Yes Indications: Displaced left femoral neck fracture Surgeon: Chandrakant Ferrari Assisted?: No Anesthesia Type: General Operative Notes Findings: Displaced left femoral neck fracture Closure Type: primary Specimen(s): none sent Prosthetic devices, grafts, tissues, transplants, or devices: Tavares and nephew: Synergy porous femoral stem, size 12, standard neck Ref: [id number]: [id number] 28 mm outer diameter, +0, 12/14 taper femoral head Ref: [id number] Lot: [id number] 28 mm internal diameter, 45 mm outer diameter, Tandem Bipolar component Ref: [id number] Lot: [id number] Applied: implant(s) Estimated Blood Loss (mL): 150 Blood products transfused: none Procedure in detail: Patient presented to the emergency room yesterday following a fall and was diagnosed with a displaced femoral neck fracture. She was admitted to the hosp ital and received medical clearance. Management options were discussed with her and her . Recommendation was made to proceed with left hip hemiarthroplasty. Risks and benefits of the procedure were discussed at length and she was in agreement with proceeding with surgery. Patient was seen in the holding area and the surgical site was marked. She was then taken to the operating room. General anesthesia was induced and the airway was secured while the patient was on his hospital bed. She was then transferred to the operating table and placed in lateral decubitus position with all bony prominences appropriately padded. Lateral positioning devices were used to help support her in the lateral position. The left lower extremity was then prepped out with ChloraPrep and draped out in the standard sterile fashion. A posterior approach was performed. A slight curvilinear posterior incision was made centralized over the posterior aspect of the greater trochanter. Incision was carried down through the skin and subcutaneous tissues to the fascia. The fascia was then incised in line with the skin incision and the fibers of the gluteus mark were bluntly dissected using finger dissection proximally. Anterior and posterior flaps were then developed. A Charnley retractor was then placed to retract the fascial layer. The sciatic nerve was identified deep within this plane below the tensor fascia. The short external rotators were exposed. The piriformis tendon was then released from the greater trochanter using Bovie electrocautery and tagged with a 2 FiberWire. The remaining short external rotators were also identified and tagged and released. This exposed the posterior hip joint. Retractors were placed anteriorly and posteriorly to the femoral neck and a T shaped capsular incision was made using Bovie. Fracture was identified in the hematoma was evacuated. Hohmann retractors were placed above and below the neck after identifying the lesser trochanter. The femoral neck was then cut after assessing with the template using a sagittal saw and fragments were removed. The femoral head was then removed and measured to a size 45 mm. A trial femoral head was then used to assess the fit within the acetabulum and 45 mm was selected. The leg was then abducted and internally rotated 90?. Box osteotome was then used to open the proximal femur. In the femoral canal was entered using a straight awl and then reamed to a size 12. Broaches were then used to broach the proximal femur until appropriate fit was achieved. The trial head and neck components were then fitted and the hip was reduced. Stability assessment was performed and the leg was found to be stable through anticipated range of motion. The trial components were removed and the hip hip joint and surrounding incision site were copiously irrigated. The final Press-Fit stem was then inserted and impacted into place in line with the calcar. There was no evidence of any femoral fracture after impaction. The component was found to be stable to rotational and longitudinal forces. The trial head was then again used to assess the tissue tension and final components for the head were selected. The head component was then assembled on the back table and then impacted onto the stem. The hip was then reduced and tissue tension stability were again assessed and found to be appropriate. There was no gross instability within physiologic ranges of motion. Limb length was grossly equivalent. The hip was again copiously irrigated and the posterior capsule was repaired with #2 FiberWire sutures. The capsule, piriformis, and short external rotators were then repaired down to the greater trochanter through drill holes using the previously placed #2 Fiber wires. The tensor fascia was then closed with 0 Vicryl interrupted sutures. Skin was anesthetized with 0.5% Marcaine with epinephrine. Skin was then closed in layers with 2-0 Vicryl buried interrupted sutures in the dermis followed by a running 4-0 Monocryl subcuticular stitch. The incision line was then dressed with Dermabond, Telfa, and Tegaderm dressing. Complications: none Post-operative Condition: stable Disposition: Acute Care Plan for aftercare: May weightbear as tolerated on the left leg. Physical therapy, occupational therapy, and case management work on disposition planning. Instructed on posterior hip precautions. Follow up with Orthopedics in clinic in 10-14 days.
[2025-04-19] MEDS: LACTATED RINGERS 1,000 ML 100 ML IV (18:49)
[2025-04-19] MEDS: SENNOSIDES 8.6 MG TABLET 17.2 MG PO (22:12)
[2025-04-19] MEDS: DOCUSATE 100 MG CAPSULE PO ×2 (22:12)
[2025-04-20] VITALS (9 sets, daily range): BP systolic 111–132; BP diastolic 47–62; PULSE 74–86; RESP 14–20; TEMP 35.7–36.4; O2SAT 92–97
[2025-04-20] MEDS: ACETAMINOPHEN 325 MG TABLET 650 MG PO ×4 (01:04→17:43)
[2025-04-20 05:21] LABS: Add Manual Diff / Slide Review NO; Hematocrit 34.4 % (36-46); Hemoglobin 11.5 g/dL (12.0-16.0); Lymphocytes Absolute Auto 1400 /uL (1100-4500); Mean Corpuscular HGB Conc 33.4 % (30-36); Mean Corpuscular Hemoglobin 28.4 PG (26-34); Mean Corpuscular Volume 85.2 fL (80-100); Platelet Count 242 X10^3/uL (150-400)
[2025-04-20 05:42] LABS: Blood Urea Nitrogen 13 mg/dL (7-17); Calcium 8.1 mg/dL (8.4-10.2); Carbon Dioxide 21 mmol/L (22-32); Chloride 100 mmol/L (98-107); Estimated Glomerular Filt Rate > 60 mL/min (>60); Glucose 144 mg/dL (70-99); HEMOLYSIS < 15 (0-50); Potassium 3.8 mmol/L (3.4-5.1); Sodium 131 mmol/L (137-145)
[2025-04-20] MEDS: METOPROLOL ER 50 MG TABLET PO (08:20)
[2025-04-20] MEDS: MELOXICAM 7.5 MG TABLET 15 MG PO (08:23)
--- NOTE | 2025-04-20 10:02 | P.PN_ITS ---
Subjective Subjective Date Patient Seen: 04/20/25 Time Patient Seen: 10:02 Interval history: Patient reports pain is improving and she is doing well overall. She is pleased with her progress so far. She has no particular complaints today. Exam Vital Signs (past 8 hours): - 04/20/25 03:31 04/20/25 06:00 04/20/25 08:00 Temperature 97.5 F L 97.6 F 97.6 F Pulse Rate 86 77 74 Respiratory Rate 15 20 14 Blood Pressure 126/56 L 123/62 126/60 Pulse Oximetry 96 95 93 Oxygen Flow Rate 0 0 04/20/25 08:20 Temperature Pulse Rate 77 Respiratory Rate Blood Pressure 123/62 Pulse Oximetry Oxygen Flow Rate Oxygen Delivery Method Room Air Oxygen Flow Rate 0 Narrative Exam Narrative: Left hip dressing is clean, dry, and intact. Distal motor and sensory exams are intact. There is no distal edema. Objective Labs 04/20/25 04:41 04/20/25 04:41 Labs: Laboratory Results - last 24 hr 04/20/25 04:41 WBC 15.4 H RBC 4.04 Hgb 11.5 L Hct 34.4 L MCV 85.2 MCH 28.4 MCHC 33.4 RDW 13.8 Plt Count 242 Neut % (Auto) 78.5 H Lymph % (Auto) 9.1 L D [place] % (Auto) 3.0 Eos % (Auto) 0.3 L Baso % (Auto) 9.1 H Neut # (Auto) 35055 H Lymph # (Auto) 1400 [place] # (Auto) 500 Eos # (Auto) 0 Baso # (Auto) 1400 H Sodium 131 L Potassium 3.8 Chloride 100 Carbon Dioxide 21 L BUN 13 Creatinine 0.78 Estimated GFR > 60 BUN/Creatinine Ratio 16.7 Glucose 144 H Calcium 8.1 L PFSH Medical History Osteopenia Surgical History History of parotid gland removal Status post tubal ligation Social History household members: spouse Smoking Status: Never smoker Assessment & Plan Assessment & Plan narrative: Postop day 1 from left hip hemiarthroplasty, doing well plan: Complete antibiotic coverage. Pain control per hospitalist team. Posterior hip precautions. Weightbear as tolerated. Physical therapy /OT /case management evaluations. DVT prophylaxis per hospitalist team, chemoprophylaxis can be initiated today. Time-Based Coding :: [TOTAL MINUTES] spent with patient and on the chart (including review of chart, obtaining history, exam, reviewing outside data, placing orders, documenting exam and treatment plan, and counseling patient) on [DATE]. 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
--- NOTE | 2025-04-20 12:00 | PT.IIE ---
Current Diagnoses Fracture of unspecified part of neck of left femur, initial encounter for closed fracture (04/18/25) Surgery Performed Operation Date: 04/19/25 11:00 Actual Procedures p Hip Hemiarthroplasty(Left) - Chandrakant Ferrari MD Surgical History (Last Reviewed 04/19/25 @ 07:57 by Tyson Rouse MD) History of parotid gland removal Status post tubal ligation Medical History (Last Reviewed 04/19/25 @ 07:57 by Tyson Rouse MD) Osteopenia Physical Therapy Inpatient Evaluation/Re-Eval M1 PT IP Prior Functional Status Start: 04/20/25 11:49 Freq: NEEDED Status: Active Protocol: Document 04/20/25 11:50 MB (Rec: 04/20/25 11:59 MB Desktop) Medical Review Prior Functional Status Medical History Yes Reviewed Diet/Fluid Regular Consistency Communication WNLs Mobility and Gait I Activities of Daily I, works at [employer] 3x/wk Living and IADL's Social History Household Members spouse Living Arrangements House Number of Floors ( Two Floors Floors) Number of Stairs To 2 steps and no rail to enter, flight of steps and 1 Enter/Railing? rail on right to upstairs, does not need to go up there Employment Status Retired Additional Social See OT note for further home equipment History Comment M2 PT-IP Current Condition Start: 04/20/25 11:49 Freq: NEEDED Status: Active Protocol: Document 04/20/25 11:50 MB (Rec: 04/20/25 11:59 MB Desktop) Physical Therapy Current Condition Current Condition Evaluation Date 04/20/25 Treatment Diagnosis Fall, left hip fracture, hemiarthroplasty M3 PT-IP Subjective Start: 04/20/25 11:49 Freq: NEEDED Status: Active Protocol: Document 04/20/25 11:50 MB (Rec: 04/20/25 11:59 MB Desktop) Subjective Physical Therapy Visit Type Type Initial Evaluation Visit Start Time 11:25 Visit Stop Time 11:45 Number of DIRECTOR SELECTION AND ADMINISTRATION Visits 0 Physical Therapy Visit Comments Patient Comments Pt is agreeable to PT. Therapy Pain Assessment Pain When Pain Assessed At Rest Pain Present Pain Present Pain Reported Location Left Hip Intensity 2 Scale Used Numeric (0 - 10) M4 PT-IP Mobility and Gait Start: 04/20/25 11:49 Freq: NEEDED Status: Active Protocol: Document 12/26/25 11:50 MB (Rec: 04/20/25 11:59 MB Desktop) PT-Bed Mobility Assessment Supine to Sit Supine to Sit Standby Assistance,1 Person Assistance,Head of Bed Elevated,Bedrails Scooting Scooting to Edge of Standby Assistance Bed PT-Transfer Assessment Sit to and From Stand Sit to and from Contact Guard Assistance,1 Person Assistance Stand Equipment Transfer Assistive Gait Belt,Front Wheeled Walker Device Orthotic/Prosthetic No Devices or Brace: Transfers Transfer Destination Chair Transfer Technique Stepping Transfer Ability Level of Assist Standby Assistance Gait Assessment Gait Gait Assistance Standby Assistance Required: Distance (Feet) 5 Able to Maintain Yes Weight Bearing Status During Gait Assistive Devices Assistive Device Gait Belt,4 Wheeled Walker Orthotic/Prosthetic No Devices or Brace: Gait Deviations General Gait Pattern Antalgic,Step-to Gait Factors Limiting Gait Function Factors Limiting Limited Range of Motion,Pain,Poor Balance Gait Function Comments Gait Comments For first time OOB, taught step-to gait RW, then left, then right foot for forward and right and then left foot and then walker for retropulsion. Ed pt that return to normal step-through gait with walker is goal as soon as she can tolerate PT-Balance Assessment Sitting Balance and Reactions Static Sitting Normal Balance Ability Dynamic Sitting Normal Balance Ability Standing Balance and Reactions Static Standing Good Balance Ability Dynamic Standing Good Balance Ability Device Used RW M5 PT-IP Objective Assessments Start: 04/20/25 11:49 Freq: NEEDED Status: Active Protocol: Document 04/20/25 11:50 MB (Rec: 04/20/25 11:59 MB Desktop) Orientation Orientation/Cognition Level of Alertness Alert Orientation Name Language Function No Deficits Noted Ability Safety Awareness Understands Safety Issues Memory Description No Deficits Noted Gross Range of Motion Upper Extremity ROM Assessment Within Functional Limits Lower Extremity ROM Assessment Left Impaired Impairments Hip decreased post-op Strength Lower Extremity Strength Assessment Left Impaired Hip NT post-op Coordination Assessment Gross Coordination Gross Coordination Impaired Sensation Assessment Sensation Gross Sensation WNL Muscle Tone Muscle Tone WNL Yes M6 PT-IP Treatment Start: 04/20/25 11:49 Freq: NEEDED Status: Active Protocol: Document 04/20/25 11:50 MB (Rec: 04/20/25 11:59 MB Desktop) Physical Therapy Treatment Exercises Exercises Ankle Pumps Education Education Provided Precautions,Weight Bearing Status,Post-Op Packet,Safety M7 PT-IP Assessment and Plan Start: 04/20/25 11:49 Freq: NEEDED Status: Active Protocol: Document 04/20/25 11:50 MB (Rec: 04/20/25 11:59 MB Desktop) PT Summary Assessment and Plan Potential Rehabilitation Excellent Potential Status of Condition Evolving at Evaluation Summary Impairments Pain,ROM,Strength,Balance,Coordination,Bed Mobility, Transfers,Gait Assessment Summary Pt is a pleasant and active 79 y/o female adm to hospital after fall on curb and left hip fracture. She underwent hemiarthroplasty and is FWB and has posterior hip precautions per surgeon. Pt is motivated, moves well and has good pain management today. Anticipate she will be an excellent rehabilitation candidate. Goals Bed Mobility Goal Independent Transfer Goal Independent,Front Wheeled Walker Gait Goal Independent,Front Wheel Walker Gait Distance 85 Other Goals Pt will ascend and descend 2 steps with LRAD and no more than superv to allow safe home entrance. Pt will ascend and descend flight of steps with right rail ascend and left rail descend with no more than superv to all safe in-home mobility. Days to Meet Goals 5 Frequency of Treatment Other frequency 1-2x/day Treatment Plan Physical Therapy Bed Mobility Training,Transfer Training,Gait Training, Treatment Plan Therapeutic Exercise,Balance Retraining,Post Op Education,Discharge Planning,Hot or Cold Pack, Neuromuscular Re-ed,Coordination Retraining,Manual Therapy Precautions Posterior Hip No Hip Flexion > 90 degrees,No Hip Internal Rotation,No Precautions Hip Adduction Weight Bearing Status Weight Bearing Full Weight Bearing Status Recommendations To Nursing Amount of Assist 1 Person Assist Needed Discharge Recommendations PT Discharge SNF Rehab Recommendations Transportation Needs Private Vehicle at Discharge - PT assist x1
--- NOTE | 2025-04-20 12:07 | PM.PN.1 ---
Subjective Subjective Date Patient Seen: 04/20/25 Time Patient Seen: 09:40 Interval history: CC: hip fracture POD #1 s/p hip repair she is feeling ok pain is controlled appetite is good she is perky and alert today. No BM since admission. Denies any other injury from fall on side. Exam Vital Signs (past 8 hours): - 04/20/25 06:00 04/20/25 08:00 04/20/25 08:20 Temperature 97.6 F 97.6 F Pulse Rate 77 74 77 Respiratory Rate 20 14 Blood Pressure 123/62 126/60 123/62 Pulse Oximetry 95 93 Oxygen Flow Rate 0 Oxygen Delivery Method Room Air Oxygen Flow Rate 0 Narrative Exam Narrative: sitting up in hospital bed HENMT Other: NC/AT Resp Other: clear to auscultation bilaterally Cardio Other: regular rate s1/s2 no pedal edema Neuro Other: alert awake oriented Extrem Other: incisions under clean dry dressings over L hip, wiggling L toes Objective Labs 04/20/25 04:41 04/20/25 04:41 Labs: Laboratory Results - last 24 hr 04/20/25 04:41 WBC 15.4 H RBC 4.04 Hgb 11.5 L Hct 34.4 L MCV 85.2 MCH 28.4 MCHC 33.4 RDW 13.8 Plt Count 242 Neut % (Auto) 78.5 H Lymph % (Auto) 9.1 L D [place] % (Auto) 3.0 Eos % (Auto) 0.3 L Baso % (Auto) 9.1 H Neut # (Auto) 50108 H Lymph # (Auto) 1400 [place] # (Auto) 500 Eos # (Auto) 0 Baso # (Auto) 1400 H Sodium 131 L Potassium 3.8 Chloride 100 Carbon Dioxide 21 L BUN 13 Creatinine 0.78 Estimated GFR > 60 BUN/Creatinine Ratio 16.7 Glucose 144 H Calcium 8.1 L PFSH Medical History Osteopenia Surgical History History of parotid gland removal Status post tubal ligation Social History household members: spouse Smoking Status: Never smoker Assessment & Plan Assessment & Plan narrative: 79-year-old female with pathologic fracture of left hip with known history of osteoporosis. #Left femoral neck fracture POD #1 s/p repair, doing well, PT recs SNF rehab, looking to dc this weekend #hx of PVCs per history - no trouble with surgery #Hyponatremia chronic issue, monitor and treat as needed #Essential hypertension Stable continue home meds #Hyperlipidemia stable continue home statin. #Osteoporosis IN setting of hip fx with GLF - previous DEXA scan which showed osteoporosis. Will need treatment with this with either bisphosphonate or denosumab in outpt setting. Dispo: SNF rehab per PT DVT ppx: SCDS MDM: Diet: regular Time-Based Coding :: [TOTAL MINUTES] spent with patient and on the chart (including review of chart, obtaining history, exam, reviewing outside data, placing orders, documenting exam and treatment plan, and counseling patient) on [DATE]. Quality VTE Deep Vein Thrombosis/Pulmonary Embolism Present on Admission: No
--- NOTE | 2025-04-20 12:31 | OT.IP.EVAL ---
Current Diagnoses Fracture of unspecified part of neck of left femur, initial encounter for closed fracture (04/18/25) Surgery Performed Operation Date: 04/19/25 11:00 Actual Procedures p Hip Hemiarthroplasty(Left) - Chandrakant Ferrari MD Past Medical History (Last Reviewed 04/19/25 @ 07:57 by Tyson Rouse MD) Osteopenia Surgical History (Last Reviewed 04/19/25 @ 07:57 by Tyson Rouse MD) History of parotid gland removal Status post tubal ligation Occupational Therapy Inpatient Evaluation/Re-Eval M1 OT IP Prior Functional Status Start: 04/20/25 12:14 Freq: Status: Active Protocol: Document 04/20/25 11:20 CLARITZA (Rec: 04/20/25 12:31 YUEDECANDELARIO Desktop) Medical Review Prior Functional Status Medical History Yes Reviewed Diet/Fluid Regular Consistency Communication WNLs Mobility and Gait I Activities of Daily I, works at [employer] 3x/wk Living and IADL's Social History Household Members spouse Living Arrangements House Number of Floors ( Two Floors Floors) Number of Stairs To 2 steps and no rail to enter, flight of steps and 1 Enter/Railing? rail on right to upstairs, does not need to go up there Home Environment High Toilet,Walk in Shower Employment Status Retired Additional Social adjustable bed History Comment M2 OT-IP Current Condition Start: 04/20/25 12:14 Freq: Status: Active Protocol: Document 04/20/25 11:20 CLARITZA (Rec: 04/20/25 12:31 CLARITZA Desktop) Occupational Therapy Current Condition Current Condition Evaluation Date 04/20/25 Treatment Diagnosis s/p L hip hemiarthroplasty Diagnosis Onset Date 04/18/25 Post Operative Precautions Posterior Hip No Hip Flexion > 90 degrees,No Hip Internal Rotation,No Precautions Hip Adduction Weight Bearing Status Weight Bearing Full Weight Bearing Status M3 OT- IP Subjective and Pain Start: 04/20/25 12:14 Freq: Status: Active Protocol: Document 04/20/25 11:20 CLARITZA (Rec: 04/20/25 12:31 CLARITZA Desktop) OT- Subjective Occupational Therapy Visit Type Type Initial Evaluation Visit Start Time 11:20 Visit Stop Time 12:00 Notes Pt reclined in bed on entrance of OT/PT for co-eval. Pt agreeable to participating in eval. Occupational Therapy Visit Comments Patient Comments My is worried about being able to help me Patient/Caregiver To take care of her needs Goals OT Pain Assessment Pain When Pain Assessed At Rest Pain Present Pain Present Pain Reported Location Left Hip Intensity 1 M4 OT- IP ADL's Start: 04/20/25 12:14 Freq: Status: Active Protocol: Document 04/20/25 11:20 CLARITZA (Rec: 04/20/25 12:31 [facility] SQX-Zyes-Sslexij General Evaluation Self-Feeding Ability Independent OT ADL-Grooming General Evaluation Grooming Ability Standby Assistance OT ADL-Oral Care Comments Oral Care Comments not observed OT ADL-Dressing General Eval Upper Body Dressing Minimal Assistance Ability Lower Body Dressing Total Assistance Ability Comments OT Dressing Comments Pt requires MIN A for gown mgmt and TOTAL A for LB dressing due to hip precautions. As treatment, OT educated pt on use of LB AE (finish repairer and sock aid) to don and doff socks and pants. Pt demonstrated with up to min A, would benefit from continued review for I with LB dressing while maintaining hip precautions. OT ADL-Toileting General Evaluation Toileting Ability Total Assistance Comments OT Toileting Pt is currently dependent on catheter. Comments OT ADL-Bathing Comments OT Bathing Comments not observed M5 OT- IP IADL's Start: 04/20/25 12:14 Freq: Status: Active Protocol: Document 04/20/25 11:20 CLARITZA (Rec: 04/20/25 12:31 [facility] OT-Instrumental Activities of Daily Living Deficits IADL Deficits Deficits Identified Home Safety Awareness Awareness of Need Good Awareness for Assistance at Home Ability to Problem Able to Problem Solve Solve Emergency Situations Medication Management Medication No Deficits Identified Management Money Management Money Management No Deficits Identified Meal Preparation Meal Preparation Will need assist Comments 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 Teacher Ehs Teacher Will need assist Comments Driving Driving Comments Will need assist M6 OT- IP Functional Cognition Start: 04/20/25 12:14 Freq: Status: Active Protocol: Document 04/20/25 11:20 CLARITZA (Rec: 04/20/25 12:31 [facility]) Cognitive Factors Limiting Selfcare Function Cognitive Ability Level of Alertness Alert Patient Orientation Name,Age,Birthday,Month,Date,Year,Day of Week,Place, Situation Attention Span Capable of Focused Attention,Capable of Sustained Ability Attention Ability to Follow Able to Follow One Step Commands,Able to Follow Multi- Commands Step Commands Memory Description No Deficits Noted Safety Awareness No Deficits Noted Problem Solving No deficits Noted Ability OT- Vision and Hearing OT- Hearing Assessment OT- Hearing WFL Assessment OT- Vision Assessment Vision History Cataracts Visual Acuity WFL,Glasses All The Time M7 OT- IP Mobility and Balance Start: 04/20/25 12:14 Freq: Status: Active Protocol: Document 04/20/25 11:20 [facility] (Rec: 04/20/25 12:31 [facility] OT- Bed Mobility Assessment Supine to Sit Supine to Sit Assist Standby Assistance Scooting Scooting to Edge of Standby Assistance Bed OT-Transfer Assessment Sit to and From Stand Sit to and from Contact Guard Assistance Stand Transfers Transfer Ability Standby Assistance Technique Transfer Destination Chair Transfer Technique Stand Step Pivot Devices Transfer Assistive Gait Belt,Front Wheeled Walker Devices Comments Mobility Comments Pt BP 121/60. Pt performs bed mobility with increased time and vcs for sequencing. Pt needs vcs for hand placement during functional tfs for safety. OT- Gait Assessment Comments Gait Ability See PT note Comments OT- Balance Assessment Sitting Balance and Reactions Static Sitting Normal Balance Ability Dynamic Sitting Normal Balance Ability Standing Balance and Reactions Static Standing Good Balance Ability Dynamic Standing Good Balance Ability M8 OT- IP Objective Assessments Start: 04/20/25 12:14 Freq: Status: Active Protocol: Document 04/20/25 11:20 YUEDECANDELARIO (Rec: 04/20/25 12:31 [facility]) OT Gross Range of Motion Upper Extremity Range of Motion Assessment Within Functional Limits OT Strength Upper Extremity Strength Assessment Within Functional Limits Hand Model And Mold Maker Plaster Strength Hand Dominance Right OT-Muscle Tone Assessment Muscle Tone WNL Yes OT Sensation Assessment Edema Edema Present Edema Comments L LE M9 OT- IP Assessment and Plan Start: 04/20/25 12:14 Freq: Status: Active Protocol: Document 04/20/25 11:20 YUEDECANDELARIO (Rec: 04/20/25 12:31 [facility]) OT Summary Assessment and Plan Potential Rehabilitation Excellent Potential Analytic Complexity Low at Evaluation Summary OT Impairments Balance,Functional Mobility,Grooming,Dressing,Toileting ,Bathing,Toilet Transfers,Shower Transfers,Activity Tolerance Progress Towards Progressing Toward Goals Goals Assessment Summary Pt is a 79 yo F who fell on a curb when going out to dinner resulting in L femoral neck fx. Pt is s/p L hip hemiarthroplasty and is FWB and has posterior precautions per surgeon. OT reviewed hip precautions with pt and left appropriate paperwork for her to review. OT encourages pt to ask questions of the next therapist if she has them. Pt was I with all BADL, IADL , and community mobility prior to fall. She lives with her spouse, but has concerns of spouse being able to physically assist her. Pt presents with decreased activity tolerance, decreased functional mobility, and impaired BADLs. Skilled OT services are appropriate to address these deficits and promote return to PLOF. Pt would benefit from continued education on hip precautions and use of LB AE for LB dressing. Recommend SNF on dc to further progress towards PLOF. Goals Grooming Goal Independent Dressing Goal Independent,Dressing Stick,Long Handled Shoe Horn, Make Up Worker,Sock Aid Toileting Goal Independent Bathing Goal Independent,Hand Held Shower Sprayer,Long Handled Sponge or Standard Toilet Transfer Goal Independent,Grab Bars Shower Transfer Goal Independent,Walk-in Shower,Shower Chair,Grab Bars Days to Meet Goals 7 Frequency of Treatment Other frequency 5x/wk Treatment Plan OT Treatment Plan ADL Training,Functional Mobility,Therapeutic Exercises, Patient/Family Education,Discharge Planning Other Treatment LB AE, shower Recommendations and Next Treatment Focus Discharge Recommendations OT Discharge SNF Rehab Recommendations Transportation Needs Private Vehicle at Discharge
--- NOTE | 2025-04-20 16:27 | PC.NURSE ---
Pt having uneventful day, Denies discomfort A/O, F/C D/C this morning, Pt SBA to BR voided QS. Dsg to left hip CDI. SL intact/patent. Call light w/in reach, pt calls appropriately for needs. Continue w/plan of care.
[2025-04-20] MEDS: ENOXAPARIN 40 MG/0.4 ML SYRINGE SUBCUT (16:41)
[2025-04-20] MEDS: SENNOSIDES 8.6 MG TABLET 17.2 MG PO (21:45)
[2025-04-20] MEDS: DOCUSATE 100 MG CAPSULE PO (21:45)
[2025-04-21] MEDS: ACETAMINOPHEN 325 MG TABLET 650 MG PO ×2 (01:56→08:23)
[2025-04-21 04:00] VITALS: BP 128/66; PULSE 68; RESP 20; TEMP 36.8; O2SAT 96
[2025-04-21 07:48] VITALS: BP 112/64; PULSE 75; RESP 16; TEMP 36.3; O2SAT 96
--- NOTE | 2025-04-21 07:56 | PM.DS.IH.1 ---
History of Present Illness History of Present Illness Chief complaint: Fell Narrative: 79-year-old female patient of [facility] presented to the emergency department after a fall. Patient states he was tending to go to dinner with some family and friends. She was walking into the [employer]. She tripped on the curb and fell on her hip. She was with her in the friends were close by. She has medical related friends. They determined that going to dinner was not good as she was not able to stand up and bear weight on her hip. Her was able to pick her up they decided to transport her to the hospital in a private vehicle. When she fell she fell on her hip. She says she did not hit her head she did not lose consciousness. Before her hospitalization she says she is in good health. She has had no chest pain no shortness of breath. She is able to walk and lives independently. No problems with her memory. Patient a few years ago was diagnosed with PVCs but no problems now she relates this after getting COVID vaccine. Patient is on amlodipine atorvastatin and metoprolol. Laboratory tests were reviewed patient has normal hemoglobin and hematocrit shows no anemia. Patient has chronically low sodium since 2018. Her current sodium level was 134 she has normal kidney function. Patient previous DEXA scan shows osteoporosis. Patient had an echocardiogram in 2021 with a normal ejection fraction no significant valvular heart disease. Previous surgical history includes a tubal surgery and parotid gland surgery without any complications. Discharge Providers Provider Date of admission: 04/18/25 17:48 Discharge Date: 04/21/25 Primary care physician: KYLIE Metaclf Consults: 04/18/25 19:45 Consult to Hospitalist Service Routine Comment: Consulting Provider: Kenny Hayes Reason for consultation: Perioperative medical management Has provider been notified: Yes 04/19/25 18:20 Consult to Discharge Planning Routine Comment: Consult to Occupational Therapy Evaluate & Treat Comment: Physician Instructions: Evaluate and treat Consult to Physical Therapy Evaluate & Treat Comment: Physician Instructions: Evaluate and Treat Discharge provider: Tyson Rouse MD Summary Hospital Course Discharge Diagnosis: Left femoral neck fracture status post hemiarthroplasty Pathologic fracture due to osteoporosis PVCs Chronic hyponatremia Hypertension Hyperlipidemia Hospital Course: Patient was admitted to the hospital after fall and hip fracture. Patient underwent left hip surgery. Patient had rehabilitation here in the hospital and was stable with ambulation eating vital signs were stable and hemoglobin hematocrit was stable patient was deemed stable for discharge to home. Patient will follow up with Orthopedic surgery and primary care physician for management of osteoporosis. Exam Vital Signs (past 8 hours): - 04/21/25 04:00 04/21/25 07:48 Temperature 98.3 F 97.3 F L Pulse Rate 68 75 Respiratory Rate 20 16 Blood Pressure 128/66 112/64 Pulse Oximetry 96 96 Oxygen Flow Rate 0 Oxygen Delivery Method Room Air Oxygen Flow Rate 0 Narrative Exam Narrative: Gen.: Alert good historian HEENT: Pupils equal round and reactive Cardio: [S1-S2 regular rate and rhythm no murmurs appreciated.] Respiratory: Normal respiratory effort lungs are clear Abdomen: [Soft nontender no rebound or guarding no liver spleen enlargement no appreciable hernias] Extremities: Warm dry perfused dressing intact Objective Labs 04/20/25 04:41 04/20/25 04:41 PFS Medical History Osteopenia Surgical History History of parotid gland removal Status post tubal ligation Social History household members: spouse Smoking Status: Never smoker Discharge Plan Discharge Plan Patient Disposition: Home Discharge orders & Medications Prescriptions: New polyethylene glycol 3350 [Miralax] 17 gram/dose powder 17 g PO DAILY Qty: 119 0RF oxycodone 5 mg capsule 2.5 mg PO Q8H Qty: 20 0RF Continued amlodipine [Norvasc] 2.5 mg tablet 5 mg PO QDAY Qty: 0 metoprolol succinate 50 mg cap,sprinkle,ER 24hr dose pack 50 mg PO DAILY atorvastatin 10 mg tablet 5 mg PO BEDTIME Follow up/Referrals: Shira Plata ARNP [Primary Care Provider, Family Practice] Other Ambulatory Orders: Oxycodone GC/MS (Routine) Location: None Selected Ordered By: Tyson Rouse Diet/Activity/Treatments Diet: Diet as Tolerated Activity: As per Orthopedic surgery Visit Report/Discharge Packet Stand Alone Forms: Patient Portal/API, Influenza Vaccine Info, Notice of Privacy Practices, Pneumococcal Vaccine Info, Pt. Rights & Responsibilities Discharge Data Primary Care Provider: Shira Plata Quality VTE Deep Vein Thrombosis/Pulmonary Embolism Present on Admission: No IH PROFEE Charge Codes Discharge inpatient/observation: [id number]
[2025-04-21] MEDS: ENOXAPARIN 40 MG/0.4 ML SYRINGE SUBCUT (08:22)
[2025-04-21] MEDS: DOCUSATE 100 MG CAPSULE PO (08:23)
[2025-04-21] MEDS: METOPROLOL ER 50 MG TABLET PO (08:25)
[2025-04-21] MEDS: MELOXICAM 7.5 MG TABLET 15 MG PO (08:31)
[2025-04-21 09:48] VITALS: BP 112/64; PULSE 75
--- NOTE | 2025-04-21 09:52 | PT.IPTN ---
Current Diagnoses Fracture of unspecified part of neck of left femur, initial encounter for closed fracture (04/18/25) Surgery Performed Operation Date: 04/19/25 11:00 Actual Procedures p Hip Hemiarthroplasty(Left) - Chandrakant Ferrari MD Physical Therapy Treatment Note M2 PT-IP Current Condition Start: 04/20/25 11:49 Freq: NEEDED Status: Active Protocol: Document 04/21/25 08:41 AB (Rec: 04/21/25 09:51 AB [id number]) Physical Therapy Current Condition Current Condition Evaluation Date 04/20/25 Treatment Diagnosis Fall, left hip fracture, hemiarthroplasty M3 PT-IP Subjective Start: 04/20/25 11:49 Freq: NEEDED Status: Active Protocol: Document 04/21/25 08:41 AB (Rec: 04/21/25 09:51 AB [id number]) Subjective Physical Therapy Visit Type Type Treatment Note Visit Start Time 08:41 Visit Stop Time 09:31 Number of BROADCAST OPERATIONS ENGINEER Visits 1 Physical Therapy Visit Comments Patient Comments Patient agreeable to PT, rates pain 2/10 L hip start of session, seated. Therapy Pain Assessment Pain When Pain Assessed At Rest Pain Present Pain Present Pain Reported Location Left Hip Intensity 2 Scale Used Numeric (0 - 10) M4 PT-IP Mobility and Gait Start: 04/20/25 11:49 Freq: NEEDED Status: Active Protocol: Document 04/21/25 08:41 AB (Rec: 04/21/25 09:51 AB [id number]) PT-Bed Mobility Assessment Supine to Sit Supine to Sit Independent,Standby Assistance Sit to Supine Sit to Supine Independent,Standby Assistance Scooting Scooting to Edge of Independent Bed PT-Transfer Assessment Sit to and From Stand Sit to and from Independent Stand Equipment Transfer Assistive Gait Belt,Front Wheeled Walker Device Orthotic/Prosthetic No Devices or Brace: Transfers Transfer Destination Chair Transfer Technique Stepping Transfer Ability Level of Assist Independent Comments Mobility Comments Patient able to verbalize posterior hip precautions start of session. Patient transferred supine to and from sit with verbal cues first trial, Independent second trial, no rails used, head of bed flat, bed height raised to height patient estimates bed height at home. Gait Assessment Gait Gait Assistance Independent,Standby Assistance Required: Assistive Devices Assistive Device Gait Belt,Front Wheeled Walker Orthotic/Prosthetic No Devices or Brace: Gait Deviations General Gait Pattern Antalgic,Step-to Gait Factors Limiting Gait Function Factors Limiting Pain Gait Function Comments Gait Comments Patient ambulated 68 feet with FWW with supervision, verbal cues for step through pattern. On second trial ambulated 92 feet with FWW I step to pattern, noted more antalgic last ~30 feet of second trial, which was performed post stair training, rated pain 2/10, bud of note did rate pain 3/10 during first trial of ambulation with FWW. Stair Climbing Assessment Evaluation Level of Assist On Minimal Assistance Stairs Devices Stair Climbing Straight Cane,Left Railing,Right Railing Assistive Devices Technique/Endurance Stair Climbing Ascend and Descend Direction Stair Climbing Step to Step Technique Number of Steps 1 Climbed Stair Climbing Set # 2 Repetitions (reps) Comments Stair Climbing Niki ascended one 6 inch step with railing on R Comments step to pattern favoring L LE with very minimal assist, verbal cues for sequence and technique. On second trial used SPC on right again required review of sequence and technique and required slightly more, but still minimal assist. Recommend stair training with spouse assisting when he arrives at hospital. PT-Balance Assessment Sitting Balance and Reactions Static Sitting Normal Balance Ability Dynamic Sitting Normal Balance Ability Standing Balance and Reactions Static Standing Good Balance Ability Dynamic Standing Good Balance Ability Device Used FWW M5 PT-IP Objective Assessments Start: 04/20/25 11:49 Freq: NEEDED Status: Active Protocol: Document 04/20/25 11:50 MB (Rec: 04/20/25 11:59 MB Desktop) Orientation Orientation/Cognition Level of Alertness Alert Orientation Name Language Function No Deficits Noted Ability Safety Awareness Understands Safety Issues Memory Description No Deficits Noted Gross Range of Motion Upper Extremity ROM Assessment Within Functional Limits Lower Extremity ROM Assessment Left Impaired Impairments Hip decreased post-op Strength Lower Extremity Strength Assessment Left Impaired Hip NT post-op Coordination Assessment Gross Coordination Gross Coordination Impaired Sensation Assessment Sensation Gross Sensation WNL Muscle Tone Muscle Tone WNL Yes M6 PT-IP Treatment Start: 04/20/25 11:49 Freq: NEEDED Status: Active Protocol: Document 04/21/25 08:41 AB (Rec: 04/21/25 09:51 AB [id number]) Physical Therapy Treatment Exercises Exercises Ankle Pumps Education Education Provided Precautions,Weight Bearing Status,Safety M7 PT-IP Assessment and Plan Start: 04/20/25 11:49 Freq: NEEDED Status: Active Protocol: Document 04/21/25 08:41 AB (Rec: 04/21/25 09:51 AB [id number]) PT Summary Assessment and Plan Potential Rehabilitation Excellent Potential Status of Condition Evolving at Evaluation Summary Assessment Summary Patient has met goals for Bed mobility, transfers and ambulation. Stairs require minimal assist. Recommend second session this day with spouse, to be trained in assisting patient on stairs. Goals Bed Mobility Goal Independent Transfer Goal Independent,Front Wheeled Walker Gait Goal Independent,Front Wheel Walker Gait Distance 85 Other Goals Pt will ascend and descend 2 steps with LRAD and no more than superv to allow safe home entrance. Pt will ascend and descend flight of steps with right rail ascend and left rail descend with no more than superv to all safe in-home mobility. Days to Meet Goals 5 Frequency of Treatment Other frequency 1-2x/day Treatment Plan Physical Therapy Bed Mobility Training,Transfer Training,Gait Training, Treatment Plan Therapeutic Exercise,Balance Retraining,Post Op Education,Discharge Planning,Hot or Cold Pack, Neuromuscular Re-ed,Coordination Retraining,Manual Therapy Precautions Posterior Hip No Hip Flexion > 90 degrees,No Hip Internal Rotation,No Precautions Hip Adduction Weight Bearing Status Weight Bearing Full Weight Bearing Status Recommendations To Nursing Amount of Assist Independent Needed Discharge Recommendations PT Discharge SNF Rehab Recommendations Transportation Needs Private Vehicle at Discharge - PT assist x1
--- NOTE | 2025-04-21 09:57 | PC.NURSE ---
Addendum entered by Ana Jack, RN 04/21/25 12:50: Pt passed PT. D/C instructions given w/understanding Pt escorted by staff via W/C to waiting vehicle D/C in stable post op status. Original Note: Pt med prior to PT; did well Dsg to left hip CDI MD in earlier this am and D/C orders received Sitting in chair. Hopefully to see ortho MD prior to D/c. Call light w/in reach, pt calls appropriately for needs.
--- NOTE | 2025-04-21 13:26 | PT.IPTN ---
Current Diagnoses Fracture of unspecified part of neck of left femur, initial encounter for closed fracture (04/18/25) Surgery Performed Operation Date: 04/19/25 11:00 Actual Procedures p Hip Hemiarthroplasty(Left) - Chandrakant Ferrari MD Physical Therapy Treatment Note M2 PT-IP Current Condition Start: 04/20/25 11:49 Freq: NEEDED Status: Discharge Protocol: Document 04/21/25 12:26 AB (Rec: 04/21/25 13:26 AB [id number]) Physical Therapy Current Condition Current Condition Evaluation Date 04/20/25 Treatment Diagnosis Fall, left hip fracture, hemiarthroplasty M3 PT-IP Subjective Start: 04/20/25 11:49 Freq: NEEDED Status: Discharge Protocol: Document 04/21/25 12:26 AB (Rec: 04/21/25 13:26 AB [id number]) Subjective Physical Therapy Visit Type Type Treatment Note Visit Start Time 12:28 Visit Stop Time 12:41 Number of ASSOCIATE MEDICAL DIRECTOR Visits 2 Physical Therapy Visit Comments Patient Comments Patient reports having no pain start of session L hip. Spouse present and reports there is only one step to enter the home and he measured it and it is 6 inches. Therapy Pain Assessment Pain When Pain Assessed After Treatment Pain Present Pain Present Pain Reported Location Left Hip Intensity 2 Scale Used Numeric (0 - 10) M4 PT-IP Mobility and Gait Start: 04/20/25 11:49 Freq: NEEDED Status: Discharge Protocol: Document 04/21/25 12:26 AB (Rec: 04/21/25 13:26 AB [id number]) Stair Climbing Assessment Evaluation Level of Assist On Standby Assistance,Contact Guard Assistance Stairs Devices Stair Climbing Front Wheel Walker Assistive Devices Technique/Endurance Stair Climbing Ascend and Descend Direction Stair Climbing Step to Step Technique Number of Steps 1 Climbed Stair Climbing Set # 3 Repetitions (reps) Comments Stair Climbing Visual demonstration of ascending and descending one Comments step with FWW for L hip replacement. Niki ascended and descended one 6 inch step using a FWW with CGA by this therapist, patient self verbalizing correct sequence, second trial spouse performing CGA with patient verbalizing correct sequence, third trial with standby assist again using FWW with patient verbalizing and using the correct technique and sequence. PT-Balance Assessment Sitting Balance and Reactions Static Sitting Normal Balance Ability Dynamic Sitting Normal Balance Ability Standing Balance and Reactions Static Standing Good Balance Ability Dynamic Standing Good Balance Ability Device Used FWW M5 PT-IP Objective Assessments Start: 04/20/25 11:49 Freq: NEEDED Status: Discharge Protocol: Document 04/20/25 11:50 MB (Rec: 04/20/25 11:59 MB Desktop) Orientation Orientation/Cognition Level of Alertness Alert Orientation Name Language Function No Deficits Noted Ability Safety Awareness Understands Safety Issues Memory Description No Deficits Noted Gross Range of Motion Upper Extremity ROM Assessment Within Functional Limits Lower Extremity ROM Assessment Left Impaired Impairments Hip decreased post-op Strength Lower Extremity Strength Assessment Left Impaired Hip NT post-op Coordination Assessment Gross Coordination Gross Coordination Impaired Sensation Assessment Sensation Gross Sensation WNL Muscle Tone Muscle Tone WNL Yes M6 PT-IP Treatment Start: 04/20/25 11:49 Freq: NEEDED Status: Discharge Protocol: Document 04/21/25 08:41 AB (Rec: 04/21/25 09:51 AB [id number]) Physical Therapy Treatment Exercises Exercises Ankle Pumps Education Education Provided Precautions,Weight Bearing Status,Safety M7 PT-IP Assessment and Plan Start: 04/20/25 11:49 Freq: NEEDED Status: Discharge Protocol: Document 04/21/25 12:26 AB (Rec: 04/21/25 13:26 AB [id number]) PT Summary Assessment and Plan Potential Rehabilitation Excellent Potential Status of Condition Evolving at Evaluation Summary Assessment Summary Patient met goals for bed mobility, transfers and ambulation earlier this day. This afternoon Spouse into session reporting there is one step into home, also reports measuring the step at 6 inches. Patient able to ascend and descend one 6 inch step with supervision this session, goal was not met as written, but was able to perform to modification made due to clarification of actual stair height and amount needed to enter and exit the home with supervision, and spouse was trained in how to assist. Goals Bed Mobility Goal Independent Transfer Goal Independent,Front Wheeled Walker Gait Goal Independent,Front Wheel Walker Gait Distance 85 Other Goals Pt will ascend and descend 2 steps with LRAD and no more than superv to allow safe home entrance. Pt will ascend and descend flight of steps with right rail ascend and left rail descend with no more than superv to all safe in-home mobility. Days to Meet Goals 5 Frequency of Treatment Other frequency 1-2x/day Treatment Plan Physical Therapy Bed Mobility Training,Transfer Training,Gait Training, Treatment Plan Therapeutic Exercise,Balance Retraining,Post Op Education,Discharge Planning,Hot or Cold Pack, Neuromuscular Re-ed,Coordination Retraining,Manual Therapy Precautions Posterior Hip No Hip Flexion > 90 degrees,No Hip Internal Rotation,No Precautions Hip Adduction Weight Bearing Status Weight Bearing Full Weight Bearing Status Recommendations To Nursing Amount of Assist Standby Assistance Needed Discharge Recommendations PT Discharge SNF Rehab Recommendations Transportation Needs Private Vehicle at Discharge - PT assist x1
== END 2025-04-21 12:45 | disposition home or self-care (01) | DRG 522 ==
LOC: ED 17:48 → AC 17:49
PROVIDERS: Orthopaedic Surgery; Admitting Provider Family Medicine; Emergency Provider Emergency Medicine; PCP Internal Medicine; Referring Provider Emergency Medicine; Visit Provider Family Medicine
PROC: 0SRS0JZ Replacement of Left Hip Joint, Femoral Surface with Synthetic Substitute, Open Approach (ICD-10-PCS; CPT 27125; principal; 2025-04-19 11:00)
DX: M80.052A Age-related osteoporosis with current pathological fracture, left femur, initial encounter for fracture (principal); E87.1 Hypo-osmolality and hyponatremia; I10 Essential (primary) hypertension; E78.5 Hyperlipidemia, unspecified; Z86.79 Personal history of other diseases of the circulatory system
CPT/HCPCS: 36415; 73502; 80048; 80053; 83690; 85025; 86850; 86900; 86901; 93005; 96374; 97116; 97161; 97165; 97530; 97535; 99284; C1776; J0131; J0330; J0689; J1100; J1171; J1650; J2270; J2405; J2704; J3010; J3490; J7120; J8501